=== PATIENT | female | born 1990 | race Caucasian/White ===

== ENCOUNTER 2016-09-21 10:14 | Emergency (ER) | payer OTHER ==
[~2016-09-21 10:14] MED LIST: ACYCLOVIR400 MG PO; PRENATAL VITAMINS PO
--- NOTE | 2016-09-21 15:19 | ED NURSING NOTES ---
Clinical Report - Nurses [facility] [place] [address] 09/21/2016 10:16 Patient: LARRY MCLEAN TRIAGE Triage time 10:25. Acuity: LEVEL 3. Chief Complaint: HEADACHE. Alert. No acute distress. GUMARO COMA SCORE: Gumaro Coma Scale: 15- eyes open spontaneously (4); best verbal response- oriented x 4 (5); best motor response- obeys commands (6). --10:35 Ronnie Contreras R.N. 10:29 09/21/16. BP: 117/59. HR: 91. RR: 20. O2 saturation: 100% on room air. Temp: 98.2 F (oral). Pain level now 9/10. --10:35 Ronnie Contreras R.N. Weight: 47.6 kg stated. Height/Length: 64 inches Per Patient. BMI: 18. --10:30 Ronnie Contreras R.N. Medications Tylenol Oral, PRN. --10:34 Ronnie Contreras R.N. Allergies Acetaminophen.(nausea) Sulfa Antibiotics. --10:33 Ronnie Contreras R.N. Medication/allergy information source: the patient. --10:35 Ronnie Contreras R.N. History Arrived by private vehicle. Historian: patient. Primary physician (javier). ( headache starting yesterday. Denies any hx of headaches or migraines. described as being on the "top of my head" and "throbbing". States headache is only worsened by laying supine.). This started yesterday. 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 PAST MEDICAL HX: Last normal menstrual period now. Denies current . SOCIAL HX: Never smoker. No alcohol use or drug use. ABUSE ASSESSMENT: Abuse assessment: The patient was asked "Do you feel safe in your home?". No report of abuse. FALL RISK ASSESSMENT: Fall risk assessment completed. No fall risk identified. NUTRITIONAL RISK ASSESSMENT: The nutritional risk assessment revealed no deficiencies. FUNCTIONAL ASSESSMENT: Functional assessment: no impairments noted. LEARNING NEEDS ASSESSMENT: The learning needs assessment revealed no barriers. SKIN INTEGRITY ASSESSMENT: Skin integrity risk assessment completed. No skin integrity risk identified. --10:35 Ronnie Contreras R.N. PROBLEMS: Vomiting. Gastritis. Abdominal Pain. Pharyngitis. --10:34 Ronnie Contreras R.N. ADDITIONAL SURGERIES: Tympanostomy Tubes. --10:34 Ronnie Contreras R.N. Interventions ID band on patient. To treatment room. --10:35 Ronnie Contreras R.N. PHYSICAL ASSESSMENT Ambulatory to room. GENERAL / NEURO / PSYCH: Alert. Oriented X 4. Appears in no acute distress. Speech within normal limits. HEENT: No facial asymmetry noted. RESPIRATORY: Respirations not labored. CVS: Capillary refill less than 2 seconds. GI / : Abdomen soft. SKIN: Skin is warm and dry. --10:35 Ronnie Contreras R.N. NURSING PROGRESS NOTES 10:35 09/21/16. The plan of care for this patient has been created. Patient gowned. Head of bed elevated. Call light placed in reach. Bed placed in lowest position. Brakes of bed on. Patient ready for evaluation- chart flagged. --10:35 Ronnie Contreras R.N. 12:20 09/21/16. BP: 101/60. HR: 119. RR: 16. O2 saturation: 100%. Pain level now 9/10. --12:21 Liz Mann R.N. 12:22 09/21/2016 Site #1 started via IV in the right antecubital space with an 20g angiocath, with aseptic technique and good blood return; one attempt. Blood drawn: rainbow set. Labeled in the presence of the patient and sent to the lab. Saline lock flushed with 10 mL saline. --12:25 Liz Mann R.N. 12:23 09/21/2016 Started bag #1 1000 mL IV Fluids IV NS (Saline); at 1000 mL/hr over 1 hour(s) via site #1 via IV pump. Allergies verified and confirmed 5 rights. IV patency established. IV site checked: no pain, redness, or swelling. IV flushed thoroughly pre- and post-medication administration. --12:25 Liz Mann R.N. 12:24 09/21/2016 Zofran (Ondansetron HCl) IVP 4 mg given over 1 minute(s) via site #1. --12:26 Liz Mann R.N. 12:09/21/2016 Dilaudid (HYDROmorphone HCl PF) IVP 0.5 mg given over 1 minute(s) via site #1. Allergies verified, confirmed 5 rights and sedative warning given to the patient. IV patency established. IV site checked: no pain, redness, or swelling. IV flushed thoroughly pre- and post-medication administration. --12:26 Liz Mann R.N. 12:09/21/16. BP: 114/70. HR: 87. RR: 16. O2 saturation: 100%. Pain level now 9/10. --12:26 Liz Mann R.N. 12:41 09/21/16. Pain level now 7/10. --12:41 Liz Mann R.N. Reassessment after medication administered. She has had no adverse reaction. Overall patient status- she states feels better. --12:41 Liz Mann R.N. 12:44 09/21/2016 Dilaudid (HYDROmorphone HCl PF) IVP 0.5 mg given over 1 minute(s) via site #1. Allergies verified, confirmed 5 rights and sedative warning given to the patient. IV patency established. IV site checked: no pain, redness, or swelling. IV flushed thoroughly pre- and post-medication administration. --12:44 Liz Mann R.N. Reassessment after fluids administered and medication administered. She has had no adverse reaction. Overall patient status- she states feels the same. --14:22 Liz Mann R.N. 13:22 09/21/2016 IV Fluids IV NS Discontinued: bag #1 infused. Total amount infused: 1000 mL. IV patency established. IV site checked: no pain, redness, or swelling. IV flushed thoroughly. --14:22 Liz Mann R.N. ( assisted pt. to bathroom. Tolerated well.). --14:26 Liz Mann R.N. Patient ID band checked for patient name, birthdate and medical record number: patient confirmed. Instructions provided to collect clean catch urine and patient verbalized understanding. Clean catch urine collected with return of yellow-colored clear urine; sample sent to lab for urinalysis. Specimen labeled in the presence of the patient. --14:39 Liz Mann R.N. 14:40 09/21/16. BP: 108/64. HR: 94. RR: 16. O2 saturation: 100%. Pain level now: 09/14. --14:40 Liz Mann R.N. DISPOSITION / DISCHARGE 15:45 09/21/2016 Site #1 removed upon discharge. Catheter intact. Manual pressure and bandaid applied. --15:45 Liz Mann R.N. ( provider aware of d/c v/s. No new orders recieved.). --15:45 Liz Mann R.N. 15:44 09/21/16. BP: 94/59. HR: 90. RR: 16. O2 saturation: 100%. Temp: 99.4 F. Fink-Silva pain scale: 4/10. --15:45 Liz Mann R.N. Departure time: 15:50. Condition at departure: stable. No learning barriers present. Discharge instructions provided and reviewed with the patient. Reviewed medication(s) side effects, precautions, dosing and course information. Prescription(s) given to the patient. Reviewed referral to family practice for followup. Patient verbalized understanding. Written instructions provided in German. The patient was discharged home and accompanied by machine sewer. She left the Emergency Department ambulatory and via private vehicle. [employer] T[employer] In[employer] driving. Medication list reviewed and validated. --15:50 Liz Mann R.N. Locked/Released at 09/21/2016 16:12 by Liz Mann R.N.
--- NOTE | 2016-09-21 15:19 | ED CLINICAL REPORT ---
Clinical Report - Physicians/[facility] [address] [place] [address] 09/21/2016 10:16 Patient: LARRY MCLEAN Time Seen: 10:27. Arrived- By private vehicle. Historian- patient. HISTORY OF PRESENT ILLNESS Chief Complaint: HEADACHE. Is still present. This started yesterday. It was abrupt in onset and has been constant. Onset during light activity. Located in the right temporal and left temporal region, region of the right eye and left eye and facial region (last night she had pain behind her eyes). No neck pain. At its maximum, severity described as 9 / 10. When seen in the E.D., severity described as 9 / 10. Modifying factors: worsened by moving head; relieved by nothing. The patient has had blurred vision and nausea. She has had moderate vomiting. The vomiting has occurred several times. No blood-tinged emesis or coffee-grounds emesis. No photophobia, numbness or weakness. Similar symptoms previously: None. REVIEW OF SYSTEMS No chills, sweats, calf pain, chest pain or cough. No difficulty breathing, pedal edema, palpitations, abdominal pain or black stools. No bloody stools, constipation, diarrhea, urinary problems or neck pain. The patient has had fever of 101.3 F (22 days ago). All systems otherwise negative, except as recorded above. PAST HISTORY PCP - [facility]. Problems: Vomiting. Gastritis. Abdominal Pain. Pharyngitis. . Additional Surgeries: Tympanostomy Tubes. Medications: Tylenol Oral, PRN. Allergies: Acetaminophen.(nausea) Sulfa Antibiotics. SOCIAL HISTORY Never smoker. No alcohol use or drug use. Residence: [place]. FAMILY HISTORY Denies family medical history. ADDITIONAL NOTES The nursing notes have been reviewed. PHYSICAL EXAM Vital Signs: 09/21/2016 10:29 BP: 117/59. HR: 91. RR: 20. O2 saturation: 100%. Temp: 98.2 F. Have been reviewed. Appearance: Alert. Head: No tenderness to palpation/percussion over the sinuses. Eyes: Pupils equal, round and reactive to light. Eyes normal inspection. No photophobia. ENT: Ears normal. Nose normal. Pharynx normal. Neck: Normal inspection. Neck supple. No meningeal signs. No neck stiffness or nuchal rigidity. Negative Brudzinski's sign and Kernig's sign. No carotid bruit. CVS: Normal heart rate and rhythm. Heart sounds normal. Respiratory: No respiratory distress. Breath sounds normal. Abdomen: Soft and nontender. No organomegaly. Back: Normal inspection. No CVA tenderness. Skin: Skin warm and dry. Normal skin color. No rash. Normal skin turgor. Extremities: Extremities exhibit normal ROM. No calf tenderness. No lower extremity edema. Neuro: Alert. Speech normal. Cranial nerves normal (as tested). No cerebellar findings. No motor deficit. No sensory deficit. LABS, X-RAYS, AND EKG Laboratory Tests: UA-Culture if indicated: (NATIVIDAD: 09/21/2016 14:33) ( [facility] 09/21/2016 15:11) Final results Test Result Flag Units (Reference) URINE COLOR YELLOW URINE APPEARANCE CLEAR URINE GLUCOSE NEGATIVE (NEGATIVE) URINE BILIRUBIN NEGATIVE (NEGATIVE) URINE KETONE NEGATIVE (NEGATIVE) URINE SPECIFIC GRAVITY >= 1.030 (1.010-1.030) URINE PH 6.0 (5.0-8.0) URINE PROTEIN NEGATIVE (NEGATIVE) URINE UROBILINOGEN 0.2 EU/dL (0.2-1.0) URINE NITRITE NEGATIVE (NEGATIVE) URINE BLOOD NEGATIVE (NEGATIVE) URINE LEUK ESTERASE NEGATIVE (NEGATIVE) URINE RBC NONE SEEN rbc/hpf (0-1) URINE WBC 0-1 wbc/hpf (0-1) URINE EPITHELIAL CELLS 3-5 EPI/hpf (0-5) URINE BACTERIA FEW (1+) (NONE SEEN) URINE COMMENT CULT NOT INDICATED 2+ MUCUSURINE CULTURES ARE SET-UP BASED ON THE FOLLOWING CRITERIA:POSITIVE NITRITEPOSITIVE LEUKOCYTE ESTERASEGREATER THAN 10 WHITE BLOOD CELLSMODERATE (2+) OR GREATER BACTERIA Urine: ([place]IV[place]AD: 09/21/2016 14:33) ( [facility] 09/21/2016 15:00) Final results Test Result Flag Units (Reference) URINE NEGATIVE CBC w Diff: ([place]AD: 09/21/2016 12:18) ( [facility] 09/21[facility] 12:28) Final results Test Result Flag Units (Reference) WHITE BLOOD COUNT 7.2 K/uL (4.5-11.5) RED BLOOD COUNT 4.50 M/uL (4.00-5.20) HEMOGLOBIN 12.4 gm/dL (12.0-16.0) HEMATOCRIT 38.0 % (36.0-46.0) MEAN CELL VOLUME 84 fL (80-100) MEAN CORPUSCULAR HGB 28 pg (26-34) MEAN CORPUSCULAR HGB CONC 33 g/dL (31-37) RED CELL DISTRIBUTION WIDTH 13.4 % (11.6-14.8) PLATELET COUNT 180 K/uL (150-400) LYMPH % 14.2 L % (25-40) MONO % 3.8 % (3-14) GRANULOCYTE % 82.0 (53-90) CMP: (NATIVIDAD: 09/21/2016 12:18) ( [facility] 09/21/2016 12:42) Final results Test Result Flag Units (Reference) GLUCOSE 100 mg/dL (70-110) BUN 7 mg/dL (7-18) CREATININE 0.8 mg/dL (0.6-1.3) Estimated GFR >60 mL/min Estimated GFR- >60 mL/min Note: Persistent reduction over 3 months in eGFR<60 mL/min/1.73 m2 defines CKD. Patients with eGFR values>=60 mL/min/1.73 m2 may also have CKD if evidence ofpersistent proteinuria. Additional information may be foundat www.kidney.org. SODIUM 141 mmol/L (136-145) POTASSIUM 3.9 mmol/L (3.5-5.1) CHLORIDE 106 mmol/L (98-107) CARBON DIOXIDE 26 mmol/L (21-32) CALCIUM 8.7 mg/dL (8.5-10.1) TOTAL PROTEIN 7.3 g/dL (6.4-8.2) ALBUMIN 3.7 g/dL (3.3-5.0) BILIRUBIN, TOTAL 0.4 mg/dL (0.0-1.0) ALKALINE PHOSPHATASE 51 U/L (46-116) AST (SGOT) 17 U/L (15-37) ALT (SGPT) 20 U/L (12-78) LIPASE 164 U/L (73-393) AMYLASE 58 U/L (25-115) . PROGRESS AND PROCEDURES Course of Care: Patient is stable. Patient/family counseled. Old medical records reviewed. Disposition: Discharged. Condition: stable. CLINICAL IMPRESSION Acute headache. INSTRUCTIONS No driving or operating machinery while taking medication. Sedative medication was given during your visit. Warnings: Further evaluation is necessary. GENERAL WARNINGS: Return or contact your physician immediately if your condition worsens or changes unexpectedly, if not improving as expected, or if other problems arise. Prescription Medications: Zofran 4 mg: Take 1 orally every six hours as needed for nausea/vomiting. Dispense ten (10). No refills. Substitution is permissible. Ultram 50 mg: take 1-2 orally every 6 hours as needed for pain. Dispense fifteen (15). No refills. Substitution is permissible. OTC Medications: Acetaminophen (available over the counter): take according to label instructions. Motrin (available over the counter): take according to label instructions. Follow-up: Follow up with your doctor CULLEN GALLARDO Friday in two days. Call for an appointment. Understanding of the discharge instructions verbalized by patient. (Electronically signed by Theo Dillard MD 09/21/2016 18:33)
--- NOTE | 2016-09-21 15:19 | ED ORDER SUMMARY ---
..... Patient: LARRY MCLEAN OrderSheet [facility] VisitID: [id number] [place] [address] 26y, F Registration Date/Time: 09/21/2016 ORDER SHEET Weight: 47.6 kg (stated) Allergies: Acetaminophen, Sulfa Antibiotics GENERAL ORDERS: CBC w Diff Urgent (11:54 09/21/[address] Ju[address]) (Ack 11:54 Promise) (12:26 SReitz R.N.) CMP Urgent (11:54 09/21/2016 [address]) (Ack 11:54 Promise) (12:26 SReitz R.N.) UA-Culture if indicated Urgent (11:09/21/[address] Ju[address]) (Ack 11:54 Promise) (14:38 SReitz R.N.) Amylase Urgent (11:09/21/[address]) (Ack 11:54 Promise) (12:26 SReitz R.N.) Lipase Urgent (11:54 09/21/[address]) (Ack 11:54 Promise) (12:26 SReitz R.N.) Urine Urgent (11:54 09/21/[address] Ju[address]) (Ack 11:54 Promise) (14:38 SReitz R.N.) MEDICATION ORDERS: IV FLUIDS: IV NS : initial bolus 1000 mL (1000 mL/hr), then 200 mL/hr for 4h (NOW); Urgent (11:53 09/21/[address] Ju[address]ER) (Ack 12:17 SReitz R.N.) (12:25 SReitz R.N.) Dilaudid IV 0.5 mg (HIGH ALERT MEDICATION, NOW) (11:53 09/21/[address] Ju[address]ER) (Ack 12:17 SReitz R.N.) (12:26 SReitz R.N.) Zofran IV 4 mg (NOW) (11:54 09/21/[address] Ju[address]ER) (Ack 12:17 SReitz R.N.) (12:26 SReitz R.N.) Dilaudid IV 0.5 mg (HIGH ALERT MEDICATION, NOW) (12:42 09/21/[address] Ju[address]) (12:44 Layla Magana) ORDER SHEET NOTES: [Electronically signed by Liz Mann R.N. (16:11 09/21/2016)] [Electronically signed by Theo Dillard MD (18:33 09/21/2016)] [Electronically locked/signed by Liz Mann R.N. (16:11 09/21/2016)]
--- NOTE | 2016-09-21 15:19 | ED ORDER SUMMARY ---
..... Patient: LARRY MCLEAN OrderSheet [facility] VisitID: [id number] [place] [address] 26y, F Registration Date/Time: 09/21/2016 ORDER SHEET Weight: 47.6 kg (stated) Allergies: Acetaminophen, Sulfa Antibiotics GENERAL ORDERS: CBC w Diff Urgent (11:54 09/21/[address]) (Ack 11:54 Promise) (12:26 SReitz R.N.) CMP Urgent (11:54 09/21/[address]) (Ack 11:54 Promise) (12:26 SReitz R.N.) UA-Culture if indicated Urgent (11:09/21/[address]) (Ack 11:54 Promise) (14:38 SReitz R.N.) Amylase Urgent (11:09/21/[address]) (Ack 11:54 Promise) (12:26 SReitz R.N.) Lipase Urgent (11:54 09/21/[address]) (Ack 11:54 Promise) (12:26 SReitz R.N.) Urine Urgent (11:54 09/21/[address]) (Ack 11:54 Promise) (14:38 SReitz R.N.) MEDICATION ORDERS: IV FLUIDS: IV NS : initial bolus 1000 mL (1000 mL/hr), then 200 mL/hr for 4h (NOW); Urgent (11:53 09/21/[address]) (Ack 12:17 SReitz R.N.) (12:25 SReitz R.N.) Dilaudid IV 0.5 mg (HIGH ALERT MEDICATION, NOW) (11:53 09/21/[address] Ju[address]) (Ack 12:17 SReitz R.N.) (12:26 SReitz R.N.) Zofran IV 4 mg (NOW) (11:54 09/21/2016 Ju[address]ER) (Ack 12:17 SReitz R.N.) (12:26 SReitz R.N.) Dilaudid IV 0.5 mg (HIGH ALERT MEDICATION, NOW) (12:42 09/21/[address] Ju[address]) (12:44 Layla Magana) ORDER SHEET NOTES: [Electronically signed by Liz Mann R.N. (16:11 09/21/2016)] [Electronically signed by Theo Dillard MD (18:33 09/21/2016)] [Electronically locked/signed by Liz Mann R.N. (16:11 09/21/2016)]
--- NOTE | 2016-09-21 18:34 | ED DISCHARGE INSTRUCTIONS ---
Patient: LARRY MCLEAN General Instructions [facility] VisitID: [id number] [place] [address] 26y, F Registration Date/Time: 09/21/2016 Acute headache. INSTRUCTIONS No driving or operating machinery while taking medication. Sedative medication was given during your visit. Warnings: Further evaluation is necessary. GENERAL WARNINGS: Return or contact your physician immediately if your condition worsens or changes unexpectedly, if not improving as expected, or if other problems arise. Prescription Medications: Zofran 4 mg: Take 1 orally every six hours as needed for nausea/vomiting. Dispense ten (10). No refills. Substitution is permissible. Ultram 50 mg: take 1-2 orally every 6 hours as needed for pain. Dispense fifteen (15). No refills. Substitution is permissible. OTC Medications: Acetaminophen (available over the counter): take according to label instructions. Motrin (available over the counter): take according to label instructions. Follow-up: Follow up with your doctor CULLEN GALLARDO Friday in two days. Call for an appointment. Understanding of the discharge instructions verbalized by patient. ADDITIONAL INFORMATION Headache [Unspecified] The cause of your headache today is not clear, but it does not appear to be the sign of any serious illness. Under stress, some people tense the muscles of their shoulder, neck and scalp without knowing it. If this condition lasts long enough, a TENSION HEADACHE can occur. A MIGRAINE HEADACHE is caused by changes in blood flow to the brain. A migraine attack may be triggered by emotional stress, hormone changes during the menstrual cycle, oral contraceptives, alcohol use, certain foods containing tyramine, eye strain, weather changes, missing meals, lack of sleep or oversleeping. Other causes of headache include a viral illness with high fever, head injury with concussion, sinus, ear or throat infection, dental pain and TMJ (jaw joint) pain. More serious but less common causes of headache include stroke, brain hemorrhage, brain tumor, meningitis and encephalitis. Home Care: If you were given pain medicine for this headache, do not drive yourself home. Arrange for a ride, instead. When you get home, try to sleep. You should feel much better when you wake up. Apply heat to the back of your neck to relieve neck muscle spasm. Migraine headaches may respond best to an ice pack on the forehead or at the base of the skull. If you are having nausea or vomiting, follow a light diet until your headache is relieved. If you have a migraine type headache, use sunglasses when in the daylight or around bright indoor lighting until symptoms improve. Bright glaring light can worsen this kind of headache. Follow Up with your doctor if the headache is not better within the next 24 hours. If you have frequent headaches you should discuss a treatment plan with your primary care doctor. By being aware of the earliest signs of headache, and starting treatment right away, you may be able to stop the pain yourself. Get Prompt Medical Attention if any of the following occur: Worsening of your head pain or no improvement within 24 hours Repeated vomiting (unable to keep liquids down) Fever of 100.4F (38C) or higher, or as directed by your healthcare provider Stiff neck Extreme drowsiness, confusion or fainting Dizziness, vertigo (dizziness with spinning sensation) Weakness of an arm or leg or one side of the face Difficulty with speech or vision Ondansetron Hydrochloride Oral tablet What is this medicine? ONDANSETRON (on LUPE se neno) is used to treat nausea and vomiting caused by chemotherapy. It is also used to prevent or treat nausea and vomiting after surgery. How should I use this medicine? Take this medicine by mouth with a glass of water. Follow the directions on your prescription label. Take your doses at regular intervals. Do not take your medicine more often than directed. Talk to your mechanical test engineer regarding the use of this medicine in children. Special care may be needed. What side effects may I notice from receiving this medicine? Side effects that you should report to your doctor or health nonfarm animal caretaker as soon as possible: allergic reactions like skin rash, itching or hives, swelling of the face, lips or tongue breathing problems dizziness fast or irregular heartbeat feeling faint or lightheaded, falls fever and chills swelling of the hands or feet tightness in the chest Side effects that usually do not require medical attention (report to your doctor or health nonfarm animal caretaker if they continue or are bothersome): constipation or diarrhea headache What may interact with this medicine? Do not take this medicine with any of the following medications: -apomorphine -cisapride -dofetilide -dronedarone -pimozide -thioridazine -ziprasidone This medicine may also interact with the following medications: -carbamazepine -phenytoin -rifampicin -tramadol -other medicines that prolong the QT interval (cause an abnormal heart rhythm) What if I miss a dose? If you miss a dose, take it as soon as you can. If it is almost time for your next dose, take only that dose. Do not take double or extra doses. Where should I keep my medicine? Keep out of the reach of children. Store between 2 and 30 degrees C (36 and 86 degrees F). Throw away any unused medicine after the expiration date. What should I tell my health care provider before I take this medicine? They need to know if you have any of these conditions: heart disease history of irregular heartbeat liver disease low levels of magnesium or potassium in the blood an unusual or allergic reaction to ondansetron, granisetron, other medicines, foods, dyes, or preservatives or trying to get breast-feeding What should I watch for while using this medicine? Check with your doctor or health nonfarm animal caretaker right away if you have any sign of an allergic reaction. Tramadol Hydrochloride Oral tablet What is this medicine? TRAMADOL (TRA ma dole) is a pain reliever. It is used to treat moderate to severe pain in adults. How should I use this medicine? Take this medicine by mouth with a full glass of water. Follow the directions on the prescription label. If the medicine upsets your stomach, take it with food or milk. Do not take more medicine than you are told to take. Talk to your mechanical test engineer regarding the use of this medicine in children. Special care may be needed. What side effects may I notice from receiving this medicine? Side effects that you should report to your doctor or health nonfarm animal caretaker as soon as possible: allergic reactions like skin rash, itching or hives, swelling of the face, lips, or tongue breathing difficulties, wheezing confusion itching light headedness or fainting spells redness, blistering, peeling or loosening of the skin, including inside the mouth seizures Side effects that usually do not require medical attention (report to your doctor or health nonfarm animal caretaker if they continue or are bothersome): constipation dizziness drowsiness headache nausea, vomiting What may interact with this medicine? Do not take this medicine with any of the following medications: MAOIs like Carbex, Eldepryl, Marplan, Nardil, and Parnate This medicine may also interact with the following medications: alcohol or medicines that contain alcohol antihistamines benzodiazepines bupropion carbamazepine or oxcarbazepine clozapine cyclobenzaprine digoxin furazolidone linezolid medicines for depression, anxiety, or psychotic disturbances medicines for migraine headache like almotriptan, eletriptan, frovatriptan, naratriptan, rizatriptan, sumatriptan, zolmitriptan medicines for pain like pentazocine, buprenorphine, butorphanol, meperidine, nalbuphine, and propoxyphene medicines for sleep muscle relaxants naltrexone phenobarbital phenothiazines like perphenazine, thioridazine, chlorpromazine, mesoridazine, fluphenazine, prochlorperazine, promazine, and trifluoperazine procarbazine warfarin What if I miss a dose? If you miss a dose, take it as soon as you can. If it is almost time for your next dose, take only that dose. Do not take double or extra doses. Where should I keep my medicine? Keep out of the reach of children. Store at room temperature between 15 and 30 degrees C (59 and 86 degrees F). Keep container tightly closed. Throw away any unused medicine after the expiration date. What should I tell my health care provider before I take this medicine? They need to know if you have any of these conditions: brain tumor depression drug abuse or addiction head injury if you frequently drink alcohol containing drinks kidney disease or trouble passing urine liver disease lung disease, asthma, or breathing problems seizures or epilepsy suicidal thoughts, plans, or attempt; a previous suicide attempt by you or a family member an unusual or allergic reaction to tramadol, codeine, other medicines, foods, dyes, or preservatives or trying to get breast-feeding What should I watch for while using this medicine? Tell your doctor or health nonfarm animal caretaker if your pain does not go away, if it gets worse, or if you have new or a different type of pain. You may develop tolerance to the medicine. Tolerance means that you will need a higher dose of the medicine for pain relief. Tolerance is normal and is expected if you take this medicine for a long time. Do not suddenly stop taking your medicine because you may develop a severe reaction. Your body becomes used to the medicine. This does NOT mean you are addicted. Addiction is a behavior related to getting and using a drug for a non-medical reason. If you have pain, you have a medical reason to take pain medicine. Your doctor will tell you how much medicine to take. If your doctor wants you to stop the medicine, the dose will be slowly lowered over time to avoid any side effects. You may get drowsy or dizzy. Do not drive, use machinery, or do anything that needs mental alertness until you know how this medicine affects you. Do not stand or sit up quickly, especially if you are an older patient. This reduces the risk of dizzy or fainting spells. Alcohol can increase or decrease the effects of this medicine. Avoid alcoholic drinks. You may have constipation. Try to have a bowel movement at least every 2 to 3 days. If you do not have a bowel movement for 3 days, call your doctor or health nonfarm animal caretaker. Your mouth may get dry. Chewing sugarless gum or sucking hard candy, and drinking plenty of water may help. Contact your doctor if the problem does not go away or is severe. Acetaminophen Oral tablet What is this medicine? ACETAMINOPHEN (a set a MARVIN ganga fen) is a pain reliever. It is used to treat mild pain and fever. How should I use this medicine? Take this medicine by mouth with a glass of water. Follow the directions on the package or prescription label. Take your medicine at regular intervals. Do not take your medicine more often than directed. Talk to your mechanical test engineer regarding the use of this medicine in children. While this drug may be prescribed for children as young as 6 years of age for selected conditions, precautions do apply. What side effects may I notice from receiving this medicine? Side effects that you should report to your doctor or health nonfarm animal caretaker as soon as possible: allergic reactions like skin rash, itching or hives, swelling of the face, lips, or tongue breathing problems fever or sore throat redness, blistering, peeling or loosening of the skin, including inside the mouth trouble passing urine or change in the amount of urine unusual bleeding or bruising unusually weak or tired yellowing of the eyes or skin Side effects that usually do not require medical attention (report to your doctor or health nonfarm animal caretaker if they continue or are bothersome): headache nausea, stomach upset What may interact with this medicine? alcohol imatinib isoniazid other medicines with acetaminophen What if I miss a dose? If you miss a dose, take it as soon as you can. If it is almost time for your next dose, take only that dose. Do not take double or extra doses. Where should I keep my medicine? Keep out of reach of children. Store at room temperature between 20 and 25 degrees C (68 and 77 degrees F). Protect from moisture and heat. Throw away any unused medicine after the expiration date. What should I tell my health care provider before I take this medicine? They need to know if you have any of these conditions: if you frequently drink alcohol containing drinks liver disease an unusual or allergic reaction to acetaminophen, other medicines, foods, dyes or preservatives or trying to get breast-feeding What should I watch for while using this medicine? Tell your doctor or health nonfarm animal caretaker if the pain lasts more than 10 days (5 days for children), if it gets worse, or if there is a new or different kind of pain. Also, check with your doctor if a fever lasts for more than 3 days. Do not take other medicines that contain acetaminophen with this medicine. Always read labels carefully. If you have questions, ask your doctor or pharmacist. If you take too much acetaminophen get medical help right away. Too much acetaminophen can be very dangerous and cause liver damage. Even if you do not have symptoms, it is important to get help right away. Ibuprofen Oral tablet What is this medicine? IBUPROFEN (eye BYOO proe fen) is a non-steroidal anti-inflammatory drug (NSAID). It is used for dental pain, fever, headaches or migraines, osteoarthritis, rheumatoid arthritis, or painful monthly periods. It can also relieve minor aches and pains caused by a cold, flu, or sore throat. How should I use this medicine? Take this medicine by mouth with a glass of water. Follow the directions on the prescription label. Take this medicine with food if your stomach gets upset. Try to not lie down for at least 10 minutes after you take the medicine. Take your medicine at regular intervals. Do not take your medicine more often than directed. A special MedGuide will be given to you by the pharmacist with each prescription and refill. Be sure to read this information carefully each time. Talk to your mechanical test engineer regarding the use of this medicine in children. Special care may be needed. What side effects may I notice from receiving this medicine? Side effects that you should report to your doctor or health nonfarm animal caretaker as soon as possible: allergic reactions like skin rash, itching or hives, swelling of the face, lips, or tongue black or bloody stools, blood in the urine or in vomit breathing problems changes in vision chest pain general ill feeling or flu-like symptoms nausea or vomiting redness, blistering, peeling or loosening of the skin, including inside the mouth slurred speech or weakness on one side of the body stomach pain unexplained weight gain or swelling unusually weak or tired yellowing of eyes or skin Side effects that usually do not require medical attention (report to your doctor or health nonfarm animal caretaker if they continue or are bothersome): constipation or diarrhea dizziness gas or heartburn stomach upset What may interact with this medicine? Do not take this medicine with any of the following medications: cidofovir ketorolac methotrexate pemetrexed This medicine may also interact with the following medications: alcohol aspirin diuretics lithium other drugs for inflammation like prednisone warfarin What if I miss a dose? If you miss a dose, take it as soon as you can. If it is almost time for your next dose, take only that dose. Do not take double or extra doses. Where should I keep my medicine? Keep out of the reach of children. Store at room temperature between 15 and 30 degrees C (59 and 86 degrees F). Keep container tightly closed. Throw away any unused medicine after the expiration date. What should I tell my health care provider before I take this medicine? They need to know if you have any of these conditions: asthma cigarette smoker drink more than 3 alcohol containing drinks a day heart disease or circulation problems such as heart failure or leg edema (fluid retention) high blood pressure kidney disease liver disease stomach bleeding or ulcers an unusual or allergic reaction to ibuprofen, aspirin, other NSAIDS, other medicines, foods, dyes, or preservatives or trying to get breast-feeding What should I watch for while using this medicine? Tell your doctor or healthcare professional if your symptoms do not start to get better or if they get worse. This medicine does not prevent heart attack or stroke. In fact, this medicine may increase the chance of a heart attack or stroke. The chance may increase with longer use of this medicine and in people who have heart disease. If you take aspirin to prevent heart attack or stroke, talk with your doctor or health nonfarm animal caretaker. Do not take other medicines that contain aspirin, ibuprofen, or naproxen with this medicine. Side effects such as stomach upset, nausea, or ulcers may be more likely to occur. Many medicines available without a prescription should not be taken with this medicine. This medicine can cause ulcers and bleeding in the stomach and intestines at any time during treatment. Ulcers and bleeding can happen without warning symptoms and can cause . To reduce your risk, do not smoke cigarettes or drink alcohol while you are taking this medicine. You may get drowsy or dizzy. Do not drive, use machinery, or do anything that needs mental alertness until you know how this medicine affects you. Do not stand or sit up quickly, especially if you are an older patient. This reduces the risk of dizzy or fainting spells. This medicine can cause you to bleed more easily. Try to avoid damage to your teeth and gums when you brush or floss your teeth. You have been given the following additional information: Headache, Unspecified Ondansetron Hydrochloride Oral tablet Tramadol Hydrochloride Oral tablet Acetaminophen Oral tablet Ibuprofen Oral tablet No driving or operating machinery while taking medication. Sedative medication was given during your visit. (Electronically signed by Theo Dillard MD 09/21/2016 18:33)
--- NOTE | 2016-09-21 18:34 | ED MED RECONCILIATION SUMMARY ---
Patient: LARRY MCLEAN Medication Reconciliation Report [facility] VisitID: [id number] [address] [place] [address] 26y, F Registration Date/Time: 09/21/2016 Weight: 47.6 kg Height/Length: 64 in. BMI: 18.0 ALLERGIES: Acetaminophen, Sulfa Antibiotics The patient's Home Medications are listed below: THE FOLLOWING MEDICATIONS NEED TO BE RECONCILED: Tylenol Oral, PRN The source(s) of the original Home Medication information: patient The following Medications were given to the patient in the Emergency Department: IV NS IV Fluids bolus 0, then 1000 mL/hr, administered: 09/21/2016 12:23:00 PM Zofran [IVP] IVP 4 mg, administered: 09/21/2016 12:24:00 PM Dilaudid [IVP] IVP 0.5 mg, administered: 09/21/2016 12:26:00 PM Dilaudid [IVP] IVP 0.5 mg, administered: 09/21/2016 12:44:00 PM The following Medications were prescribed to the patient: Acetaminophen (available over the counter): take according to label instructions. -- Theo Dillard MD Motrin (available over the counter): take according to label instructions. -- Theo Dillard MD Zofran 4 mg: Take 1 orally every six hours as needed for nausea/vomiting. Dispense ten (10). No refills. Substitution is permissible. -- Theo Dillard MD Ultram 50 mg: take 1-2 orally every 6 hours as needed for pain. Dispense fifteen (15). No refills. Substitution is permissible. -- Theo Dillard MD
--- NOTE | 2016-09-21 18:34 | ED MAR SUMMARY ---
..... Medication Administration Record [facility] [address] [place] [address] Patient: LARRY MCLEAN Visit ID: [id number] 26y, F Weight: 47.6 kg Height/Length: 64 in BMI: 18 ALLERGIES: Acetaminophen, Sulfa Antibiotics Start 12:23 09/21/2016 Liz Mann R.N., Stop 13:22 09/21/2016 Liz Mann R.N. Medication Administered: IV NS (SALINE), Dose: IV Fluids over 1 hour(s), Rate: 1000 mL/hr, Dispensed: 1000 mL bag, Site: #1 right AC. Medication Ordered: IV NS : initial bolus 1000 mL (1000 mL/hr), then 200 mL/hr for 4h (NOW); Urgent. Given 12:24 09/21/2016 Liz Mann R.N. Medication Administered: ZOFRAN [IVP] (ONDANSETRON HCL), Dose: 4 mg IVP over 1 minute(s), Site: #1 right AC. Medication Ordered: Zofran IV 4 mg (NOW). Given 12:09/21/2016 Liz Mann R.N. Medication Administered: DILAUDID [IVP] (HYDROMORPHONE HCL PF), Dose: 0.5 mg IVP over 1 minute(s), Site: #1 right AC. Medication Ordered: Dilaudid IV 0.5 mg (HIGH ALERT MEDICATION, NOW). Given 12:44 09/21/2016 Liz Mann R.N. Medication Administered: DILAUDID [IVP] (HYDROMORPHONE HCL PF), Dose: 0.5 mg IVP over 1 minute(s), Site: #1 right AC. Medication Ordered: Dilaudid IV 0.5 mg (HIGH ALERT MEDICATION, NOW).
--- NOTE | 2016-09-21 18:34 | ED MAR SUMMARY ---
..... Medication Administration Record [facility] [address] [place] [address] Patient: LARRY MCLEAN Visit ID: [id number] 26y, F Weight: 47.6 kg Height/Length: 64 in BMI: 18 ALLERGIES: Acetaminophen, Sulfa Antibiotics Start 12:23 09/21/2016 Liz Mann R.N., Stop 13:22 09/21/2016 Liz Mann R.N. Medication Administered: IV NS (SALINE), Dose: IV Fluids over 1 hour(s), Rate: 1000 mL/hr, Dispensed: 1000 mL bag, Site: #1 right AC. Medication Ordered: IV NS : initial bolus 1000 mL (1000 mL/hr), then 200 mL/hr for 4h (NOW); Urgent. Given 12:24 09/21/2016 Liz Mann R.N. Medication Administered: ZOFRAN [IVP] (ONDANSETRON HCL), Dose: 4 mg IVP over 1 minute(s), Site: #1 right AC. Medication Ordered: Zofran IV 4 mg (NOW). Given 12:09/21/2016 Liz Mann R.N. Medication Administered: DILAUDID [IVP] (HYDROMORPHONE HCL PF), Dose: 0.5 mg IVP over 1 minute(s), Site: #1 right AC. Medication Ordered: Dilaudid IV 0.5 mg (HIGH ALERT MEDICATION, NOW). Given 12:44 09/21/2016 Liz Mann R.N. Medication Administered: DILAUDID [IVP] (HYDROMORPHONE HCL PF), Dose: 0.5 mg IVP over 1 minute(s), Site: #1 right AC. Medication Ordered: Dilaudid IV 0.5 mg (HIGH ALERT MEDICATION, NOW).
--- NOTE | 2016-09-21 18:34 | ED MED RECONCILIATION SUMMARY ---
Patient: LARRY MCLEAN Medication Reconciliation Report [facility] VisitID: [id number] [address] [place] [address] 26y, F Registration Date/Time: 09/21/2016 Weight: 47.6 kg Height/Length: 64 in. BMI: 18.0 ALLERGIES: Acetaminophen, Sulfa Antibiotics The patient's Home Medications are listed below: THE FOLLOWING MEDICATIONS NEED TO BE RECONCILED: Tylenol Oral, PRN The source(s) of the original Home Medication information: patient The following Medications were given to the patient in the Emergency Department: IV NS IV Fluids bolus 0, then 1000 mL/hr, administered: 09/21/2016 12:23:00 PM Zofran [IVP] IVP 4 mg, administered: 09/21/2016 12:24:00 PM Dilaudid [IVP] IVP 0.5 mg, administered: 09/21/2016 12:26:00 PM Dilaudid [IVP] IVP 0.5 mg, administered: 09/21/2016 12:44:00 PM The following Medications were prescribed to the patient: Acetaminophen (available over the counter): take according to label instructions. -- Theo Dillard MD Motrin (available over the counter): take according to label instructions. -- Theo Dillard MD Zofran 4 mg: Take 1 orally every six hours as needed for nausea/vomiting. Dispense ten (10). No refills. Substitution is permissible. -- Theo Dillard MD Ultram 50 mg: take 1-2 orally every 6 hours as needed for pain. Dispense fifteen (15). No refills. Substitution is permissible. -- Theo Dillard MD
== END 2016-09-21 15:50 | disposition home or self-care (01) ==
LOC: ED SRH 10:14
DX: R51 Headache (principal); Z88.6 Allergy status to analgesic agent; Z88.2 Allergy status to sulfonamides
CPT/HCPCS: 90004; 90100; 92235; 92530; 93070; 95059